=== PATIENT | male | born 1955 | race Caucasian/White ===

== ENCOUNTER → 2019-07-04 06:38 | Outpatient (CLI) | payer OTHER, SELFPAY ==
--- NOTE | 2019-07-04 06:43 | CT_ITS ---
ACR Level 3 findings have been noted. An addendum which confirms receipt of the report will follow. STUDY: CT ABDOMEN AND PELVIS WITH AND WITHOUT CONTRAST REASON FOR EXAM: Male, 64 years old. Hematuria. Right kidney stone. RADIATION DOSAGE (If Supplied By Facility): CTDIvol = ( 16.09 ) mGy, DLP = ( 1690.07 ) mGycm TECHNIQUE: Transaxial images were obtained from the dome of the diaphragm to the symphysis pubis without oral contrast. IV Isovue 300 100ml was administered. Sagittal and coronal images were reconstructed. Individualized dose optimization techniques were used for this CT. COMPARISON: September 20, 2015. FINDINGS: The visualized lung bases are unremarkable. The visualized portions of the heart are within normal limits. Normal liver. Gallstones are noted. There is mild intrahepatic biliary ductal dilatation. Normal spleen. Normal pancreas. Normal bilateral adrenal glands. Multiple cysts are noted in the right kidney. There is an 8 mm stone in the right renal pelvis. A nonspecific soft tissue density in the right renal pelvis. Normal left kidney. Normal visualized stomach. Normal small intestine. Normal colon. Appendix is not well visualized although no inflammatory changes noted in the right lower quadrant Normal abdominal aorta. Normal inferior vena cava. Normal retroperitoneum. Urinary bladder isn't well evaluated secondary to underdistention. Prostate is prominent in size. Normal abdominal wall. Normal osseous structures. CT/CT Abd/Pelvis W/WO Contrast IMPRESSION: Stable appearing right renal stone. Stable appearing prominence of the right renal pelvis. Nonspecific soft tissue density in the right renal pelvis not as well evaluated on the prior study which was without IV contrast. Correlation with labs and direct visualization can be obtained for further evaluation. Prominent prostate. Clinical correlation recommended. Gallstones are noted. There is mild intrahepatic biliary ductal dilatation Electronically Signed: Salomon Garcia, at 8:49 EDT Tel , Service support ,
[2019-07-04 06:56] LABS: CREATININE FINGERSTICK 0.8 mg/dL (0.70-1.30)
== END ==
PROVIDERS: Family Provider Family Medicine; PCP Family Medicine; Referring Provider Nurse Practitioner Adult Health; Visit Provider Nurse Practitioner Adult Health
DX: N20.0 Calculus of kidney (principal); R31.0 Gross hematuria
CPT/HCPCS: 74178; Q9967

== ENCOUNTER 2019-08-29 05:40 | Day surgery (SDC) | payer OTHER, SELFPAY ==
[2019-08-29] VITALS (9 sets, daily range): BP systolic 90–147; BP diastolic 52–86; PULSE 60–72; RESP 15–16; TEMP 36.1–36.7; O2SAT 96–99; BMI 27.6
[2019-08-29] MEDS: Lactated Ringers 1,000 ML 100 ML IV (06:16)
--- NOTE | 2019-08-29 07:30 | BLA_PTH ---
PATIENT: AMBER DE LA CRUZ [place] [facility] [place][id number] AGE/SX: 64/M ROOM: RE08/29/[address]: Dr. Robbi Dominguez MD : 1955 BED: DIS: 08/29/2019 SPEC #: [id number] RECD: 08/29/19 10:08 STATUS: LENA GABRIEL #: [id number] RICK: 08/29/19 07:[address]: Robbi Dominguez DEPT: SURGICAL PATHOLOGY RECD BY: Tonya Mcclellan ENTERED: 08/29/19 10:39 SP TYPE: BLADDER BX OTHR DR: Dr. 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 Mild acute inflammation. Negative for malignancy. GABY:wang 09/01/19 COMMENT Correlation with clinical, cystoscopic findings and appropriate follow up are necessary. MICROSCOPIC DESCRIPTION Slides are reviewed. GROSS DESCRIPTION Received in fixative is one container labeled with the patient's name and designated bladder biopsy. The specimen consists of one irregular fragment of light wing soft tissue that measures 0.2 x 0.2 x 0.1 cm. The specimen is totally submitted in one cassette. / AM:wang 08/29/19 TC:3 CPT: 53174
[2019-08-29] MEDS: Cefazolin 2 GM in 0.9% Normal Saline 100 ML IV (07:37)
[2019-08-29] MEDS: Lubricating Jelly 60 GM Tube 30 GM TOPICAL (07:55)
--- NOTE | 2019-08-29 08:31 | PCM.DC.URO ---
Discharge Diet: Light diet - advance as tolerated Discharge Activity: Return to Normal Activity, May not drive while taking narcotic pain medications., May Shower Call your doctor if you observe: Fever of 101 or Higher Instructions: Treating Kidney Stones: Ureteroscopic Stone Removal Allergies/Adverse Reactions: Allergies No Known Allergies Allergy (Verified 08/29/19 06:06) Medications to take at Discharge Carvedilol [Coreg (Beta Regino)] 18 mg PO BID 10/18/15 Aspirin [Aspir 81] 81 mg PO QHS 08/25/19 Multivitamin with Minerals [Multiple Vitamin] 1 ea PO DAILY 08/25/19 Red Yeast Rice 600 mg PO BID 08/25/19 Ciprofloxacin [Cipro] 500 mg PO BID #6 tab 08/29/19 Hydrocodone/Acetaminophen [[place] 5-325 Tablet] 1 each PO Q4H PRN PRN 5 Days #14 tablet 08/29/19 Phenazopyridine [Pyridium] 100 mg PO TID #14 tab 08/29/19 The following prescriptions were given: Ciprofloxacin [Cipro] 500 mg PO BID #6 tab Transmission Status: Pending to [id number] Hydrocodone/Acetaminophen [[place] 5-325 Tablet] 1 each PO Q4H PRN PRN 5 Days #14 tablet PRN Reason: Pain Score 1-10/10 Transmission Status: Received by [id number] Phenazopyridine [Pyridium] 100 mg PO TID #14 tab Transmission Status: Pending to [id number] Primary Care Physician: French Palma MD [Primary Care Provider] - Test Results: Test results from this visit will be discussed in further detail at your follow-up appointment, if applicable. Please Follow Up With: Robbi Dominguez MD When: please call to make an appointment.
--- NOTE | 2019-08-29 08:33 | HP.PCM_ITS ---
History of Present Illness Date of Admission: 08/29/19 Chief Complaint: Right renal calculi The patient is a 64 year old male presents the hospital today for laser of a right kidney stone Past Medical History Allergies No Known Allergies Allergy (Verified 08/29/19 06:06) Home Medications: Ambulatory Orders Medication Instructions Recorded Carvedilol [Coreg (Beta Regino)] 18 mg PO BID 10/18/15 Aspirin [Aspir 81] 81 mg PO QHS 08/25/19 Multivitamin with Minerals 1 ea PO DAILY 08/25/19 [Multiple Vitamin] Red Yeast Rice 600 mg PO BID 08/25/19 Ciprofloxacin [Cipro] 500 mg PO BID #6 tab 08/29/19 Hydrocodone/Acetaminophen [[place] 1 each PO Q4H PRN PRN 5 Days #14 08/29/19 5-325 Tablet] tablet Phenazopyridine [Pyridium] 100 mg PO TID #14 tab 08/29/19 Smoking Status: Current every day smoker Tobacco Use: Chew VTE Information - Inpt Only VTE Present on Admission: No - Physical Exam Vitals/I&O's: Vital Signs Temp Pulse Resp BP Pulse Ox 97.1 F L 62 15 127/69 H 99 08/29/19 06:07 08/29/19 06:07 08/29/19 06:07 08/29/19 06:07 08/29/19 06:07 Oxygen Delivery Method Room Air Weight: 84.9 kg Body Mass Index (BMI) 27.6 Intake and Output for Last 24 Hours 08/27/19 08/28/19 08/29/19 23:59 23:59 23:59 Intake Total 110 / 110 Balance 110 / 110 General: Alert, Oriented x3, Cooperative HEENT: Atraumatic, PERRLA, EOMI, Normocephalic Neck: Supple, No JVD, Negative Carotid Bruits Lungs: Clear to auscultation, Normal air movement Cardiovascular: Regular rate, No murmurs Abdomen: Bowel Sounds Present, Soft, Non Tender Extremities: No edema, Capillary Refill Less than 3 Seconds Skin: No rashes, No breakdown Musculoskeletal: No Tenderness to Palpation of Joints or Extremities Neurological: Cranial nerves II-XII grossly intact Psych/Mental Status: Normal Affect, Appropriate Current Medications Lactated Ringer's () 1,000 mls @ 100 mls/hr IV .Q10H MARGIE Last Admin: 08/29/19 06:16 Dose: 100 mls/hr Documented by: Assessment/Plan Plan to proceed with laser of right kidney stone and stent placement.
--- NOTE | 2019-08-29 08:34 | PCM.OPRPT ---
Report of Operation Date of Procedure: 08/29/19 Pre-Operative Diagnosis: Right renal calculi Post-Operative Diagnosis: Same, bladder lesion Surgery/Procedure Performed:: Cystoscopy, right retrograde pyelogram, interpretation fluoroscopic images, balloon dilation of the right ureter, right ureteroscopy laser lithotripsy of stone, and right stent placement. Cystoscopy bladder biopsy of a small 5 mm lesion and fulguration of site. Description of Surgical Findings:: 64-year-old male presented the office with a stone in the right renal pelvis secondary causing gross hematuria CAT scan had a lot of inflammation around the stone questionable mass within the right renal pelvis but I thought most likely is just a stone. He now presents to the hospital for ureteroscopy and laser treatment of the stone and will place a stent as well we talked about what to expect after surgery the risk of bleeding infection discomfort with the stent. Failure to retrieve the stone. 64-year-old male was taken back to the operating room after smooth induction of general anesthesia He was placed in dorsolithotomy position the penis and testicles were prepped and draped in usual sterile fashion, went into the bladder with a 21 [place] rigid cystourethroscope the entire length the urethra was normal pendulous urethra was normal bulbar urethra normal sphincter was intact verumontanum was identified he had mild hyperplasia of the prostate no median lobe once inside the bladder identified the trigone identified the left and right ureter orifice immediately and there was some debris in the bladder and then in the back of the bladder there is a red inflamed lesion decided to do a biopsy this is to make sure. I then cannulated the right ureteral orifice with a Glidewire and a Pollack catheter I performed a retrograde pyelogram could see contrast going up to the kidney could see what appeared to be a stone in the renal pelvis I then left the wire in place in the renal pelvis coiled. And then over the wire I loaded a 15 [place] 10 cm balloon dilator and dilated the distal ureter with 3 cc of contrast for about a minute. After the dilation was performed on the left the wire in place I went over the wire with the flexible ureteroscope once inside the ureter and pulled the wire and then went up the ureter with the flexible ureteroscope the entire length of the ureter was normal once I got into the right renal pelvis the insertion of the pelvis was normal I saw the stone immediately in the renal pelvis there is no tumors identified within the renal pelvis nice smooth patricia no malignancy identified. I then used a 200 ?m laser fiber and laser the stone into little tiny pieces with the settings were 6 J and 20 Hz the stone was pinned against the wall inside the kidney and lasered into dust particles. After successfully lasering the stone completely I then worked my way down the ureter put a wire through the ureteroscope and then over the wire I loaded stent and the stent was placed up in the right kidney left the string on the stent for easy extraction by next week. We then switched over the glycine I went into the bladder with a 21 [place] rigid cystourethroscope identified the red lesion the back of the bladder use a biopsy forcep performed a biopsy of the lesion and then cauterized site and the biopsy was sent off as a specimen. Could just be inflammation of a biopsy was done to rule out carcinoma. At the end the procedure we drained the patient's bladder the string was on the stent patient acetic was reversed taken back to PACU in good condition plan to see him next week no KUB will be necessary we will remove the stent in the office. Type of Anesthesia:: General Drains: stent right side - Admit VTE Documentation VTE Present on Admission: No VTE Mechan Device Prophylaxis: SCD's
== END 2019-08-29 10:44 | disposition home or self-care (01) ==
LOC: SDC 05:40 → AC 05:42
PROVIDERS: Family Provider Family Medicine; PCP Family Medicine; Referring Provider Urology; Visit Provider Urology
PROC: 0TJ98ZZ Inspection of Ureter, Via Natural or Artificial Opening Endoscopic (ICD-10-PCS; CPT 52352; principal; 2019-08-29 07:20)
DX: N20.0 Calculus of kidney (principal); N30.30 Trigonitis without hematuria; N32.9 Bladder disorder, unspecified; I44.7 Left bundle-branch block, unspecified; I10 Essential (primary) hypertension; F17.220 Nicotine dependence, chewing tobacco, uncomplicated; E66.01 Morbid (severe) obesity due to excess calories; Z68.43 Body mass index [BMI] 50.0-59.9, adult; Z95.1 Presence of aortocoronary bypass graft; Z79.82 Long term (current) use of aspirin; Z79.899 Other long term (current) drug therapy; Z85.71 Personal history of Hodgkin lymphoma
CPT/HCPCS: 52204; 52356; 76000; 88305; J7120; C1726; C1769; C2617; J2405

== ENCOUNTER → 2020-11-10 08:58 | Outpatient (CLI) | payer MEDICARE, SELFPAY ==
[2019-08-29 06:22] VITALS: BMI 27.6
[2020-11-10 09:06] LABS: Bacteria 0 SEEN /hpf (None Seen); Mucous, Urine 0 SEEN /hpf (<or=2+); Red Blood Cells-Urine 0 SEEN /hpf (0-5); Squamous Epithelial Cells - UA 0 SEEN /hpf (0-5); White Blood Cells 0 SEEN /hpf (0-5)
[2020-11-10 09:22] LABS: Color, Urine Yellow (Yellow); Glucose, Dipstick Normal (Normal); Ketone-Dipstick Negative (Negative); Leukocyte Esterase-Dipstick Negative /ul (Negative); Nitrite-Dipstick Negative (Negative); Occult Blood-Urine Negative /ul (Negative); Protein-Dipstick Negative (Negative); Urine Bilirubin Dipstick Negative (Negative); Urine Clarity Clear (Clear); Urine Urobilinogen Normal (Normal)
[2020-11-10 09:30] LABS: Absolute Lymphocyte Count 1.11 X10^3/uL (0.83-4.51); Absolute Neutrophil Count 3.4 X10^3/uL (2.0-7.7); Basophil# 0.03 X10^3/uL; Basophil% 0.5 % (0-1); Eosinophil# 0.24 X10^3/uL; Eosinophils% 4.3 % (0-5); Hematocrit 43.3 % (40-54); Lymphocyte # 1.11 X10^3/ul (4.0); Lymphocyte % 19.9 % (19-41); Mean Corp Hgb Conc 32.3 g/dL (32-36); Mean Corpuscular Hgb 28.9 pg (27.0-32.0); Mean Corpuscular Volume 89.5 fL (80-94); Mean Platelet Vol. 9.4 fl (6.2-12.0); Monocyte# 0.75 X10^3/uL; Monocyte% 13.4 % (0-10); NRBC Flagged by Analyzer 0 % (0-5); Neutrophil # 3.44 X10^3/uL (2.7-7.7); Neutrophil % 61.5 % (47-70); Platelet Count 213 K/mm3 (150-450); RBC Distribution Width SD 45.1 fl (35.1-43.9); Red Blood Count 4.84 M/mm3 (4.6-6.2); White Blood Count 5.6 K/mm3 (4.4-11.0)
[2020-11-10 09:49] LABS: Hemoglobin A1c 5.8 % (3.8-5.6)
[2020-11-10 10:00] LABS: AST(SGOT) 26 U/L (15-37); Alanine Aminotransfer ALT/SGPT 39 U/L (16-61); Albumin, Serum 4.1 g/dL (3.2-5.0); Alkaline Phosphatase 60 U/L (45-117); Anion Gap 6 (5-15); BUN 18 mg/dL (7-18); BUN/Creat Ratio 19.2 RATIO (10-20); Calcium,Total 9.5 mg/dL (8.5-10.1); Chloride 105 mmol/L (98-107); Cholesterol 125 mg/dL (200); Creatinine, Serum 0.94 mg/dL (0.70-1.30); EST Glomerular Filtration Rate 86 mL/min (>60); Est Glom Filt Rate - Afr Amer 104 mL/min (>60); Glucose 107 mg/dL (74-106); High Density Lipoprotein 48 mg/dL; PSA,Total- Diagnostic 0.23 ng/mL (0.0-4.0); Potassium 4.2 mmol/L (3.5-5.1); Protein, Total 8.1 g/dL (6.4-8.2); Sodium Level 139 mmol/L (136-145); Triglycerides 100 mg/dL; Very Low Density Lipoprotein 20 mg/dL (5-40)
== END ==
PROVIDERS: PCP Family Medicine; Referring Provider Family Medicine; Visit Provider Family Medicine
DX: I25.10 Atherosclerotic heart disease of native coronary artery without angina pectoris (principal); I10 Essential (primary) hypertension; E78.2 Mixed hyperlipidemia; N42.9 Disorder of prostate, unspecified; R73.09 Other abnormal glucose; Z85.71 Personal history of Hodgkin lymphoma
CPT/HCPCS: 36415; 80053; 80061; 81001; 83036; 84153; 85025

== ENCOUNTER → 2021-05-10 07:43 | Outpatient (CLI) | payer MEDICARE, SELFPAY ==
[2021-05-10 08:05] LABS: Absolute Lymphocyte Count 0.99 X10^3/uL (0.83-4.51); Absolute Neutrophil Count 4.2 X10^3/uL (2.0-7.7); Basophil# 0.05 X10^3/uL; Basophil% 0.8 % (0-1); Eosinophil# 0.29 X10^3/uL; Eosinophils% 4.6 % (0-5); Hematocrit 42.5 % (40-54); Hemoglobin 13.4 g/dL (13.0-16.5); Lymphocyte # 0.99 X10^3/ul (0.83-4.51); Lymphocyte % 15.6 % (19-41); Mean Corp Hgb Conc 31.5 g/dL (32-36); Mean Corpuscular Hgb 28.2 pg (27.0-32.0); Mean Corpuscular Volume 89.3 fL (80-94); Mean Platelet Vol. 9.7 fl (6.2-12.0); Monocyte# 0.78 X10^3/uL; Monocyte% 12.3 % (0-10); NRBC Flagged by Analyzer 0 % (0-5); Neutrophil # 4.21 X10^3/uL (2.7-7.7); Neutrophil % 66.4 % (47-70); Platelet Count 197 K/mm3 (150-450); RBC Distribution Width SD 45.4 fl (35.1-43.9); Red Blood Count 4.76 M/mm3 (4.6-6.2); White Blood Count 6.3 K/mm3 (4.4-11.0)
[2021-05-10 08:34] LABS: Hemoglobin A1c 6.1 % (3.8-5.6)
[2021-05-10 08:35] LABS: Cholesterol 126 mg/dL (200); High Density Lipoprotein 44 mg/dL; Triglycerides 141 mg/dL; Very Low Density Lipoprotein 28 mg/dL (5-40)
== END ==
PROVIDERS: PCP Family Medicine; Referring Provider Family Medicine; Visit Provider Family Medicine
DX: I10 Essential (primary) hypertension (principal); E78.2 Mixed hyperlipidemia; R73.09 Other abnormal glucose
CPT/HCPCS: 36415; 80061; 83036; 85025